=== PATIENT | female | born 1940 | race Caucasian/White ===

== ENCOUNTER 2018-02-19 10:54 | Inpatient (IN) ==
[2018-02-19 11:37] LABS: Basophils % 0.3 % (0.0-0.8); Eosinophils # 0.1 10*3/uL (0.0-0.87); Eosinophils % 0.8 % (0.00-10.9); Hematocrit 37.7 VOL% (35.7-47.0); Hemoglobin 13.7 GM/DL (12.0-16.0); Immature Granulocytes % 0.9 %; Immature Granulocytes Absolute 0.12 #; Lymphocytes % 7.5 % (21.3-54.2); Mean Corpuscular HGB Conc 36.3 GM/DL (32-36); Mean Corpuscular Hemoglobin 32 PG (27-34); Mean Corpuscular Volume 88.5 FL (87-102); Mean Platelet Volume 8.3 FL (9.6-12.0); Monocytes % 7.5 % (1.7-12.7); Neutrophils # 11.4 10*3/uL (1.4-7.4); Platelet Count 218 T/CUMM (130-400); Red Blood Count 4.26 MC/CUMM (3.8-5.5); Red Cell Distribution Width 12.9 % (9.3-17.3); White Blood Count 13.8 T/CUMM (4-12)
[2018-02-19 11:44] LABS: PT Patient Result 10.7 SECS; Partial Thromboplastin Time 33.1 SECS (0-40)
[2018-02-19 12:05] LABS: Alanine Aminotransferase 26 U/L (13-56); Albumin 3.4 G/DL (3.4-5.0); Alkaline Phosphatase 70 U/L (45-117); Aspartate Amino Transferase 25 U/L (0-37); Blood Urea Nitrogen 15 MG/DL (7-18); Glucose 91 MG/DL (74-106); Osmolality,Calculated 244.1 MOS/KG (273-304); Potassium 4.4 MMOL/L (3.5-5.1); Sodium 121 MMOL/L (136-145); Total Protein 6.9 G/DL (6.4-8.3)
[2018-02-19] MEDS ORDERED: SODIUM CHLORIDE 0.9% 500 ML IV STA (13:34)
[2018-02-19] MEDS ORDERED: ACETAMINOPHEN 325 MG TABLET PO PRN (14:26)
[2018-02-19] MEDS ORDERED: ALBUTEROL 2.5 MG/3 ML NEB RESP TX PRN (14:29)
[2018-02-19] MEDS ORDERED: SODIUM CHLORIDE 0.9% 1,000 ML IV SCH (14:30)
[2018-02-19] MEDS ORDERED: ACETAMINOPHEN 500 MG TABLET PO PRN (14:32)
[2018-02-19] MEDS ORDERED: QUINIDINE SULFATE 300 MG PO SCH (15:00)
[2018-02-19] MEDS: amLODIPine 10 MG TABLET PO SCH (17:26)
[2018-02-19] MEDS: LEVOFLOXACIN INJ 500 MG in PREMIX 1 EACH IV SCH (17:29)
[2018-02-19] MEDS ORDERED: PREGABALIN 50 MG CAPSULE PO SCH (21:00)
[2018-02-19] MEDS ORDERED: CITALOPRAM 20 MG TABLET PO SCH (21:00)
[2018-02-19] MEDS: DONEPEZIL 10 MG TABLET PO SCH (21:31)
[2018-02-20 06:21] LABS: Amorphous Crystals,Urine Occasional /HPF (Few); Apearance,Urine Slightly Hazy (Clear); Bacteria,Urine Occasional /HPF (Few); Bilirubin,Urine Negative (Negative); Blood, Urine Small mg/dL (Negative); Glucose,Urine (UA) Negative (Negative); Ketones,Urine Negative (Negative); Nitrite,Urine Negative (Negative); Protein,Urine Negative; RBC,Urine 7 /HPF (0-4); Squamous Epithelial Cell,Urine Occasional /HPF (0-10); Urine Color Yellow (Yellow); Urine Specific Gravity 1.009 (1.001-1.035); Urine Urobilinogen < 2.0 EU/DL (0.2-1.0); WBC,Urine 3 /HPF (0-6)
[2018-02-20 06:47] LABS: Calcium 8.3 MG/DL (8.5-10.1); Osmolality,Calculated 248.6 MOS/KG (273-304); Potassium 4.3 MMOL/L (3.5-5.1)
[2018-02-20] MEDS ORDERED: COSYNTROPIN 0.25 MG VIAL IV ONE (07:00)
[2018-02-20 07:16] LABS: Basophils # 0.1 10*3/uL (0.0-0.2); Basophils % 0.4 % (0.0-0.8); Eosinophils # 0.2 10*3/uL (0.0-0.87); Eosinophils % 1.8 % (0.00-10.9); Hematocrit 37.3 VOL% (35.7-47.0); Hemoglobin 13.5 GM/DL (12.0-16.0); Immature Granulocytes % 0.7 %; Immature Granulocytes Absolute 0.09 #; Lymphocytes # 1.1 10*3/uL (1.4-4.0); Lymphocytes % 8.6 % (21.3-54.2); Mean Corpuscular HGB Conc 36.2 GM/DL (32-36); Mean Corpuscular Hemoglobin 31 PG (27-34); Mean Corpuscular Volume 86.7 FL (87-102); Mean Platelet Volume 8.5 FL (9.6-12.0); Monocytes # 0.9 10*3/uL (0.11-0.8); Monocytes % 6.6 % (1.7-12.7); Neutrophils # 10.5 10*3/uL (1.4-7.4); Neutrophils % 81.9 % (38.7-73.9); Platelet Count 199 T/CUMM (130-400); Red Cell Distribution Width 12.7 % (9.3-17.3); White Blood Count 12.9 T/CUMM (4-12)
[2018-02-20 07:20] LABS: Platelet Estimate Adequate
[2018-02-20 07:21] LABS: Microcytosis Slight
[2018-02-20] MEDS ORDERED: FUROSEMIDE 20 MG TABLET PO SCH (09:00)
[2018-02-20] MEDS ORDERED: NON-FORMULARY MEDICATION (Omeprazole [Prilosec] 20 MG) PO SCH (09:00)
[2018-02-20] MEDS: MULTIVITAMIN (BEROCCA) TABLET PO SCH (11:02)
[2018-02-20] MEDS: ASPIRIN EC 81 MG TABLET PO SCH (11:02)
[2018-02-20] MEDS: PANTOPRAZOLE 40 MG TABLET PO SCH (11:02)
[2018-02-20] MEDS: MULTIVITAMIN (CENTRUM) TABLET PO SCH (11:02)
[2018-02-20] MEDS: amLODIPine 10 MG TABLET PO SCH (11:02)
[2018-02-20 17:01] LABS: Osmolality,Calculated 248.8 MOS/KG (273-304)
[2018-02-20] MEDS: LEVOFLOXACIN INJ 500 MG in PREMIX 1 EACH IV SCH (20:51)
[2018-02-20] MEDS: DONEPEZIL 10 MG TABLET PO SCH (20:51)
[2018-02-21 06:23] LABS: Basophils % 0.2 % (0.0-0.8); Eosinophils # 0.1 10*3/uL (0.0-0.87); Eosinophils % 0.3 % (0.00-10.9); Hemoglobin 14.1 GM/DL (12.0-16.0); Immature Granulocytes % 0.6 %; Immature Granulocytes Absolute 0.11 #; Lymphocytes % 5.9 % (21.3-54.2); Mean Corpuscular HGB Conc 36.2 GM/DL (32-36); Mean Corpuscular Hemoglobin 31 PG (27-34); Mean Corpuscular Volume 86.9 FL (87-102); Mean Platelet Volume 8.7 FL (9.6-12.0); Monocytes # 1.2 10*3/uL (0.11-0.8); Monocytes % 6.6 % (1.7-12.7); Neutrophils # 15.3 10*3/uL (1.4-7.4); Neutrophils % 86.4 % (38.7-73.9); Platelet Count 241 T/CUMM (130-400); Red Blood Count 4.49 MC/CUMM (3.8-5.5); Red Cell Distribution Width 12.6 % (9.3-17.3); White Blood Count 17.7 T/CUMM (4-12)
[2018-02-21 07:01] LABS: Osmolality,Calculated 253.4 MOS/KG (273-304); Potassium 3.9 MMOL/L (3.5-5.1)
[2018-02-21] MEDS: MULTIVITAMIN (CENTRUM) TABLET PO SCH (09:54)
[2018-02-21] MEDS: PANTOPRAZOLE 40 MG TABLET PO SCH (09:54)
[2018-02-21] MEDS: MULTIVITAMIN (BEROCCA) TABLET PO SCH (09:54)
[2018-02-21] MEDS: amLODIPine 10 MG TABLET PO SCH (09:54)
[2018-02-21] MEDS: ASPIRIN EC 81 MG TABLET PO SCH (09:54)
[2018-02-21] MEDS: SODIUM CHLORIDE 0.9% 1,000 ML IV SCH ×2 (09:59→23:05)
[2018-02-21 16:46] LABS: Calcium 8.8 MG/DL (8.5-10.1); Osmolality,Calculated 250.6 MOS/KG (273-304); Potassium 3.7 MMOL/L (3.5-5.1)
[2018-02-21] MEDS: DONEPEZIL 10 MG TABLET PO SCH (21:12)
[2018-02-21] MEDS: LEVOFLOXACIN INJ 500 MG in PREMIX 1 EACH IV SCH (21:12)
[2018-02-22 06:21] LABS: Basophils % 0.3 % (0.0-0.8); Eosinophils % 0.2 % (0.00-10.9); Hematocrit 37.2 VOL% (35.7-47.0); Hemoglobin 13.7 GM/DL (12.0-16.0); Immature Granulocytes % 0.9 %; Immature Granulocytes Absolute 0.13 #; Mean Corpuscular HGB Conc 36.8 GM/DL (32-36); Mean Corpuscular Hemoglobin 32 PG (27-34); Mean Corpuscular Volume 85.9 FL (87-102); Mean Platelet Volume 8.7 FL (9.6-12.0); Monocytes # 1.3 10*3/uL (0.11-0.8); Monocytes % 8.7 % (1.7-12.7); Neutrophils # 12.2 10*3/uL (1.4-7.4); Neutrophils % 82.9 % (38.7-73.9); Platelet Count 228 T/CUMM (130-400); Red Blood Count 4.33 MC/CUMM (3.8-5.5); Red Cell Distribution Width 12.8 % (9.3-17.3); White Blood Count 14.7 T/CUMM (4-12)
[2018-02-22 06:50] LABS: Calcium 8.6 MG/DL (8.5-10.1); Osmolality,Calculated 257.9 MOS/KG (273-304); Potassium 3.8 MMOL/L (3.5-5.1)
[2018-02-22] MEDS: PANTOPRAZOLE 40 MG TABLET PO SCH (09:43)
[2018-02-22] MEDS: ASPIRIN EC 81 MG TABLET PO SCH (09:43)
[2018-02-22] MEDS: amLODIPine 10 MG TABLET PO SCH (09:43)
[2018-02-22] MEDS: MULTIVITAMIN (CENTRUM) TABLET PO SCH (09:43)
[2018-02-22] MEDS: MULTIVITAMIN (BEROCCA) TABLET PO SCH (09:43)
[2018-02-22 16:18] VITALS: BP 174/76
== END 2018-02-22 17:23 | disposition swing bed (61) | DRG 641 ==
LOC: N.ED 10:54 → N.EDINP 14:26 → N.2E 15:45
PROVIDERS: ADMIT Internal Medicine; ATTEND Internal Medicine